=== PATIENT | male | born 1990 | race Caucasian/White ===

== ENCOUNTER 2016-12-06 17:24 | Inpatient (IN) | payer OTHER ==
[~2016-12-06] VITALS: Ht 182.9 cm; Wt 77.6 kg
[2016-12-06] MEDS ORDERED: DIAZEPAM 5 MG TABLET PO PRN (22:00)
[2016-12-06] MEDS ORDERED: MAGNESIUM HYDROXIDE 30 ML LIQUID UDC PO PRN (22:00)
[2016-12-06] MEDS ORDERED: ONDANSETRON ODT 4 MG TAB.RAPDIS SL PRN (22:00)
[2016-12-06] MEDS ORDERED: BUPRENORPHINE HCL 2 MG TAB.SUBL SL PRN (22:00)
[2016-12-06] MEDS ORDERED: LOPERAMIDE HCL 2 MG CAPSULE PO PRN ×2 (22:00)
[2016-12-06] MEDS ORDERED: MAG HYDROX/AL HYDROX/SIMETH 30 ML LIQUID UDC PO PRN (22:00)
[2016-12-06] MEDS ORDERED: LORAZEPAM 2 MG/1 ML VIAL IM PRN (22:00)
[2016-12-06] MEDS ORDERED: CLONIDINE HCL 0.1 MG TABLET PO PRN (22:00)
[2016-12-06] MEDS ORDERED: DIAZEPAM 10 MG TABLET PO PRN ×2 (22:00)
[2016-12-06] MEDS ORDERED: MIRALAX 17 GM POWD.PACK PO PRN (22:00)
[2016-12-06] MEDS ORDERED: diphenhydrAMINE 50 MG CAPSULE PO PRN (22:00)
[2016-12-06] MEDS ORDERED: DICYCLOMINE HCL 20 MG TABLET PO PRN (22:00)
[2016-12-06] MEDS ORDERED: ONDANSETRON 4 MG/2 ML VIAL IM PRN (22:00)
[2016-12-06] MEDS ORDERED: IBUPROFEN 600 MG TABLET PO PRN (22:00)
[2016-12-06] MEDS ORDERED: ACETAMINOPHEN 325 MG TABLET PO PRN (22:00)
[2016-12-06] MEDS ORDERED: THIAMINE HCL 200 MG/2 ML VIAL IM ONE (22:00)
[2016-12-06] MEDS ORDERED: HYDROXYZINE PAMOATE 25 MG CAPSULE PO PRN (22:00)
[2016-12-06] MEDS ORDERED: METHOCARBAMOL 750 MG TABLET PO PRN (22:00)
--- NOTE | 2016-12-06 23:00 | NUR ---
Admission note Pt is a 26 yo male, A+Ox4, presenting to [facility] for Opiate/ETOH dependence. Pt has Allergies to Apple, [place], Pear, and [place], is on Full Code status, and on Regular diet. Pt is 6'0" in height and 171 LBS in weight. Pt has medical HX of Genital Herpes, Insomnia, and Anxiety. Pt has no family HX to report. Pt has no Primary Care Provider. Pt has been drinking Alcohol for 11 years, has reached a level of 750ml Vodka/daily, and last drink was 750ml Vodka on 12-06-16 @0300. Pt has been using Heroin IV for 5 years, has reached a level of 1gm-3gm/daily, and last dose was 3gm on 12-06-16 @2199. Pt states that he is taking home medications as follows: Seroquel 100mg QHS Last taken 12-05-16 @2099, Valacyclovir 500mg BID Last taken 12-06-16 @2199, and Gabapentin 900mg TID Last taken 12-05-16. Pt has HX of previous Detox/Rehab @ [facility] in [facility] for 30 days from Sep 2016- October 2016. This was the PT's last time sober. Pt has been a cigarette smoker for 11 years and has reached a level of 20/daily. Pt is stable at this time with V/S WNL. Pt appears moderately intoxicated upon admission. No s/s of distress noted at this time. Respirations even and unlabored. Will continue to monitor.
[2016-12-06] MEDS ORDERED: VALA500T34 PO (23:50)
[2016-12-06] MEDS ORDERED: QUET25TA PO (23:50)
[2016-12-06] MEDS ORDERED: ROHTO EYE EACHEYE (23:50)
[2016-12-07 00:02] VITALS: BP 131/84
[2016-12-07] MEDS ORDERED: GABA300C PO (00:06)
[2016-12-07 01:17] LABS: BASOPHILS # (AUTO) 0.1 K/uL (0.0-8.0); BASOPHILS % (AUTO) 0.8 % (0.0-2.0); EOSINOPHILS # (AUTO) 0.3 K/uL (0.0-0.7); EOSINOPHILS % (AUTO) 2.9 % (0.0-7.0); HEMATOCRIT 44.9 % (36.7-47.1); HEMOGLOBIN 15.8 g/dL (12.5-16.3); LYMPHOCYTES # (AUTO) 2.1 K/uL (20.0-40.0); LYMPHOCYTES % (AUTO) 22.4 % (20.5-51.5); MEAN CORPUSCULAR HEMOGLOBIN 30.8 uug (23.8-33.4); MEAN CORPUSCULAR HGB CONC 35 g/dL (32.5-36.3); MEAN CORPUSCULAR VOLUME 87.3 fL (73.0-96.2); MONOCYTES # (AUTO) 0.7 K/uL (2.0-10.0); MONOCYTES % (AUTO) 6.9 % (0.0-11.0); NEUTROPHILS # (AUTO) 6.4 K/uL (1.8-8.9); PLATELET COUNT (AUTO) 284 K/uL (152-348); RED BLOOD CELL COUNT(AUTO) 5.14 MIL/uL (4.06-5.63); RED CELL DISTRIBUTION WIDTH 12.6 % (12.1-16.2); WHITE BLOOD COUNT (AUTO) 9.6 K/uL (3.6-10.2)
[2016-12-07 01:27] LABS: ETHANOL < 3 MG/DL (0-0)
[2016-12-07 01:32] LABS: ALANINE AMINOTRANSFERASE 39 U/L (16-63); ALBUMIN 4.3 g/dL (3.4-5.0); ALKALINE PHOSPHATASE 67 U/L (50-136); AMYLASE 28 U/L (25-115); ASPARTATE AMINOTRANSFERASE 22 U/L (15-37); BILIRUBIN,TOTAL 0.6 mg/dL (0.2-1.0); CALCIUM 9.2 mg/dL (8.5-10.1); GFR 92 mL/min (>60); GLUCOSE 117 mg/dL (74-106); LIPASE 58 U/L (73-393); TOTAL PROTEIN, SERUM 7.9 g/dL (6.4-8.2); UREA NITROGEN, BLOOD 11 mg/dL (7-18)
[2016-12-07 01:43] LABS: THYROID STIMULATING HORMONE 2.013 mIU/mL (0.358-3.740)
[2016-12-07 01:52] LABS: CARBON DIOXIDE 33 mmol/L (21-32)
[2016-12-07 01:55] LABS: CHLORIDE 99 mmol/L (98-107); SODIUM SERUM 138 mmol/L (136-145)
[2016-12-07 01:59] LABS: HIV-1 p24 ANTIGEN NON REACTIVE (NONREACTIVE); HIV-1/2 ANTIBODY NON REACTIVE (NONREACTIVE)
[2016-12-07 04:19] VITALS: BP 131/68
[2016-12-07 06:15] LABS: *AMPHETAMINE, URINE NEGATIVE (NEGATIVE); *BARBITURATE, URINE POSITIVE (NEGATIVE)
[2016-12-07 06:16] LABS: *CANNABINOID, URINE POSITIVE (NEGATIVE); *COCCAINE, URINE NEGATIVE (NEGATIVE); *OPIATE, URINE POSITIVE (NEGATIVE); *PHENCYCLIDINE SCREEN,URINE NEGATIVE (NEGATIVE)
--- NOTE | 2016-12-07 07:31 | NUR ---
End of shift note Pt is a 26 yo male, A+Ox4, presenting to [facility] for Opiate/ETOH dependence. Pt has Allergies to Apple, [place], Pear, and [place], is on Full Code status, and on Regular diet. Pt is 6'0" in height and 171 LBS in weight. Pt has medical HX of Genital Herpes, Insomnia, and Anxiety. Pt has no family HX to report. Pt has no Primary Care Provider. Pt has been drinking Alcohol for 11 years, has reached a level of 750ml Vodka/daily, and last drink was 750ml Vodka on 12-06-16 @0300. Pt has been using Heroin IV for 5 years, has reached a level of 1gm-3gm/daily, and last dose was 3gm on 12-06-16 @2199. Pt states that he is taking home medications as follows: Seroquel 100mg QHS Last taken 12-05-16 @2099, Valacyclovir 500mg BID Last taken 12-06-16 @2199, and Gabapentin 900mg TID Last taken 12-05-16 @2099. Pt has HX of previous Detox/Rehab @ [facility] in [facility] for 30 days from Sep 2016- October 2016. This was the PT's last time sober. Pt has been a cigarette smoker for 11 years and has reached a level of 20/daily. Pt slept for a total of 2 HRS. Last COWS: 1 and Last CIWA: 2 @0400. No s/s of distress noted at this time. Respirations even and unlabored. Will endorse to day shift nurse.
--- NOTE | 2016-12-07 07:32 | NUR ---
Start Of Shift Report received from table games shift manager nurse. Pt is a 26 year old male admitted on 12/06/16 for Opiate/ETOH dependence. Pt is full code regular diet on fall and seizure precautions. Pt has Allergies to Apple, [place], Pear, and [place]. Past medical HX of Genital Herpes, Insomnia, and Anxiety. Pt is placed on a 5 day Valium and 5 day Subutex tapers, to start today. Pts last COWS was a 1 and his last CIWA was a 3 which was taken at 0400. Pt did not receive any PRN medications last night and slept a total of 2 hours. Upon morning assessment Pt presented with flushed face, dilated pupils, mild aches, nasal stuffiness, some cramps and anxiety, will begin taper to control symptoms. All safety measures in place, call light within reach will continue to monitor and provide care.
[2016-12-07 08:00] VITALS: BP 125/69
[2016-12-07] MEDS: VALACYCLOVIR HCL 500 MG TABLET PO SCH ×2 (09:00→21:58)
[2016-12-07] MEDS ORDERED: TUBERCULIN,PURIF.PROT.DERIV. 5 TU/0.1 ML TEST ID ONE (09:00)
[2016-12-07] MEDS: FOLIC ACID 1 MG TABLET PO SCH (09:19)
[2016-12-07] MEDS: MULTIVITAMINS,THERAPEUTIC TABLET PO SCH (09:19)
[2016-12-07] MEDS: GABAPENTIN 300 MG CAPSULE PO SCH ×3 (09:19→21:58)
[2016-12-07] MEDS: THIAMINE HCL 100 MG TABLET PO SCH (09:19)
[2016-12-07] MEDS: BUPRENORPHINE HCL 2 MG TAB.SUBL SL SCH ×3 (09:19→21:00)
[2016-12-07] MEDS: DIAZEPAM 10 MG TABLET PO SCH ×3 (09:20→21:58)
[2016-12-07 12:00] VITALS: BP 124/72
[2016-12-07 16:00] VITALS: BP 114/69
--- NOTE | 2016-12-07 19:18 | NUR ---
End Of Shift Pt is a 26 year old male admitted for Opiate and Benzo dependency. Full code regular diet continues to be on fall and seizure precautions, Reports allergies to apple, peach, [place], pear. Patient alert and oriented x4, vital signs were stable during shift. Patient compliant with therapeutic plan of care. Patient continues on 5 day Subutex and 5 day Valium taper as ordered, well tolerated, no ASE noted. Patient encouraged adequate PO fluid intake as tolerated. Upon assessment patient presented with c/o chills, dilated pupils, stomach cramps, mild anxiety, mild agitation and barely sweating with his last COWS score of: 5 and CIWA score of: 5 @1600. Detox medication effective at reducing withdrawal symptoms. Patient encouraged to attend group therapies/sessions to learn new coping skills to recent relapse, noted attending and participating, patient denies SI/HI. Pt ate all of his meals his total fluid intake was 1855ml with 2 void and 0 bowel movement ,no PRN medications were administered during shift. Safety measures in place. Call light kept within reach. Patient endorsed to production shift supervisor nurse, all pertinent information discussed.
--- NOTE | 2016-12-07 19:19 | NUR ---
Start of shift note Received report from day shift nurse. Pt is a 26 yo male, A+Ox4, presenting to [facility] for Opiate/ETOH dependence. Pt has Allergies to Apple, peach, pear, and plum, is on Full Code status, and on Regular diet. Pt has HX of Anxiety, Insomnia, and Genital Herpes. Pt is on Fall and Seizure precautions. Pt is on 5 day Valium and Subutex tapers, tolerated well. No s/s of distress noted at this time. Respirations even and unlabored. Will continue to monitor.
[2016-12-07 20:22] VITALS: BP 115/60
[2016-12-08 00:17] VITALS: BP 118/66
[2016-12-08 04:25] VITALS: BP 112/55
--- NOTE | 2016-12-08 07:09 | NUR ---
End of shift note Pt is a 26 yo male, A+Ox4, presenting to [facility] for Opiate/ETOH dependence. Pt has Allergies to Apple, peach, pear, and plum, is on Full Code status, and on Regular diet. Pt has HX of Anxiety, Insomnia, and Genital Herpes. Pt is on Fall and Seizure precautions. Pt is on 5 day Valium and Subutex tapers, tolerated well. Pt slept for a total of 7 HRS. Last COWS: 1 and Last CIWA: 2 @0400. No s/s of distress noted at this time. Respirations even and unlabored. Will endorse to day shift nurse.
--- NOTE | 2016-12-08 07:35 | NUR ---
START OF SHIFT Received report from shift production supervisor nurse. 26 year old male, admitted on 12/06/16 for ETOH and heroin Dependence. Pt has been placed on a 5 day Valium and 5 day Subutex taper. Pt is full code regular diet on fall and seizure precautions. Allergies to apples, peaches, pears and pklums. Reports medical hx of anxiety, insomnia, and genital herpes. Pt remains compliant throughout night. Most recent CIWA at 0400 is 2, and COWS 1. Pt slept for 7 hours. No PRN medications needed or administered at night. Pt refused ordered dose of Subutex. V/S remain WNL. Skin is intact. Pt is currently sleeping in bed. All safety measures in place per hospital policy. Bed in lowest position, side rails up x2, call-light within reach. Will continue to monitor.
[2016-12-08 08:26] VITALS: BP 111/61
[2016-12-08] MEDS ORDERED: BUPRENORPHINE HCL 2 MG TAB.SUBL SL SCH ×2 (09:00→15:00)
[2016-12-08] MEDS ORDERED: DIAZEPAM 5 MG TABLET PO SCH (09:00)
--- NOTE | 2016-12-08 09:00 | NUR ---
REFUSAL OF SUBUTEX Pt is receiving ordered dose of Subutex 4mg stating he does not have any s/s of withdrawal at this time. COWS is 1, will notify
[2016-12-08] MEDS: THIAMINE HCL 100 MG TABLET PO SCH (09:14)
[2016-12-08] MEDS: MULTIVITAMINS,THERAPEUTIC TABLET PO SCH (09:14)
[2016-12-08] MEDS: GABAPENTIN 300 MG CAPSULE PO SCH ×3 (09:14→21:41)
[2016-12-08] MEDS: FOLIC ACID 1 MG TABLET PO SCH (09:15)
[2016-12-08] MEDS: VALACYCLOVIR HCL 500 MG TABLET PO SCH ×2 (09:17→21:41)
[2016-12-08 13:09] VITALS: BP 129/62
[2016-12-08 14:12] LABS: HCV AB <0.1 s/co ratio (0.0-0.9); HEPATITIS B CORE AB, IgM Negative (Negative); HEPATITIS B SURFACE AG Negative (Negative)
[2016-12-08 15:49] LABS: *AMPHETAMINE, URINE NEGATIVE (NEGATIVE); *BARBITURATE, URINE POSITIVE (NEGATIVE); *CANNABINOID, URINE POSITIVE (NEGATIVE); *COCCAINE, URINE NEGATIVE (NEGATIVE); *OPIATE, URINE POSITIVE (NEGATIVE); *PHENCYCLIDINE SCREEN,URINE NEGATIVE (NEGATIVE)
[2016-12-08 17:51] VITALS: BP 120/70
--- NOTE | 2016-12-08 19:09 | NUR ---
END OF SHIFT Endorsed to night cleaner nurse. 26 year old male patient admitted on 12/06/16 for ETOH and Heroin dependence. Pt is A/O x4. Taper has been discontinues and pt is cleared for discharge tomorrow. COWS 1 and CIWA 2 at 1700. V/S remain WNL. No acute distress noted. Urine was collected for d/c uds. Pt socializes with peers. Adequate caloric and fluid intake. Pt verbalizes feelings and is compliant and cooperative with treatment. No acute distress noted.
--- NOTE | 2016-12-08 19:09 | NUR ---
START OF SHIFT Patient endorsed by day shift nurse in stable condition. SBAR Report received. Patient is a 26 years old male admitted to [facility] on 12/06/16 for Alcohol and Opioid withdrawal under medical supervision, finished ordered 5 day Valium Taper and 5 day Subutex Taper. Patient remains compliant with therapeutic plan, medications and diet regime. Patient reported allergies to "Apple, [place], [place], Pear". Patient placed on Full Code, Regular Diet, Fall an Seizures Precautions. No Seizures History. Past Medical History: Anxiety, Insomnia, Genital Herpes. Substance Use: 1. ETOH: "0l of Vodka daily last 6 weeks. Length time usin years. Last date of use on 12/06/16 at 03:00 of 750 ml of Vodka". 2. HEROIN IV: " 1gm-3gm during last 6 weeks. Length time usin years. Last date of use on 12/06/16 at 22:00 of 3 grams. Recent Hospitalization/Treatment History: Detox/Rehabilitation @ [facility] for 30 days in [facility] from September 2016 to October 2016. Patient is in the bed , in his room. COWS 6; CIWA 6: Patient reports increased anxiety, agitation, nervousness, sweating ,mild diffuse discomfort, tremors that can felt. Patient denies N/V, and diarrhea now, Patient denies stomach cramps. Upon assessment patient is alert and oriented x4. Speech is clear and soft. VS: T:98'6; BP: 119/68; HR: 79; RR:19; RA O2SAT: 99%. Pain level : "0/10. Face is symmetrical. PERRLA. Pupil's larger than normal size bilaterally. Ears WNL. Mouth's WNL. Lips are pink. Breathing is even and unlabored. Lungs are clear bilaterally. BS's active in all x4 quadrants, abdomen is soft. Skin is intact, warm and moist by touch. Patient will discharging tomorrow. UDS test results placed on the chart. Safety measures by hospital policy: Call light within reach; Bed in lowest position and locked; padded rails up x2. All needs met. Will continue to monitor closely.
[2016-12-08 20:00] VITALS: BP 119/68
[2016-12-09] VITALS: BP 111/57
[2016-12-09] MEDS ORDERED: DIPH50CA37 PO (00:52)
[2016-12-09] MEDS ORDERED: METH-33 PO (00:52)
[2016-12-09] MEDS ORDERED: Ibuprofen PO (00:52)
[2016-12-09] MEDS ORDERED: HYDR-3895 PO (00:52)
[2016-12-09] MEDS ORDERED: DICY20TA28 PO (00:52)
[2016-12-09] MEDS ORDERED: VALA500T PO (00:56)
[2016-12-09 04:00] VITALS: BP 96/56
--- NOTE | 2016-12-09 07:18 | NUR ---
END OF SHIFT NOTE Patient is a 26 years old male admitted to [facility] on 12/06/16 for Alcohol and Opioid withdrawal under medical supervision, finished ordered 5 day Valium Taper and 5 day Subutex Taper. Patient remains compliant with therapeutic plan, medications and diet regime. Patient reported allergies to "Apple, [place], [place], Pear". Patient placed on Full Code, Regular Diet, Fall an Seizures Precautions. No Seizures History. Past Medical History: Anxiety, Insomnia, Genital Herpes. Substance Use: 1. ETOH: "750 ml of Vodka daily last 6 weeks. Length time usin years. Last date of use on 12/06/16 at 03:00 of 750 ml of Vodka". 2. HEROIN IV: " 1gm-3gm during last 6 weeks. Length time usin years. Last date of use on 12/06/16 at 22:00 of 3 grams .Recent Hospitalization/Treatment History: Detox/Rehabilitation @ [facility] for 30 days in [facility] from September 2016 to October 2016. COWS decreased from 6 to 1; CIWA decreased from 6 to 1: Patient presented with anxiety, agitation, nervousness, sweating ,mild diffuse discomfort, tremors that can felt. Patient denies N/V, and diarrhea now, Patient denies stomach cramps. Upon assessment patient is alert and oriented x4. Speech is clear and soft. VSWNL. Pain level : "0/10". Skin is intact, warm and moist by touch. PRN Benadryl was effective. Patient will discharging today. UDS test results placed on the chart. Patient slept 8 hours; Intake1,153 ml; Voided x3. Safety measures by hospital policy: Call light within reach; Bed in lowest position and locked; padded rails up x2. All needs met. Patient endorsed to day shift nurse in stable condition. SBAR Report given.
--- NOTE | 2016-12-09 07:30 | NUR ---
start of shift note: received pt from regasification plant operator nurse, pt is in stable condition no s/s of pain or discomfort. pt is [facility] for ETOH/OPIATE withdrawal. pt tolerated taper well. pt is set to discharge today. will assist pt in discharging and will continue to meet pt's needs.
[2016-12-09] MEDS: MULTIVITAMINS,THERAPEUTIC TABLET PO SCH (08:21)
[2016-12-09] MEDS: FOLIC ACID 1 MG TABLET PO SCH (08:21)
[2016-12-09] MEDS: THIAMINE HCL 100 MG TABLET PO SCH (08:21)
[2016-12-09] MEDS: GABAPENTIN 300 MG CAPSULE PO SCH (08:21)
[2016-12-09] MEDS: VALACYCLOVIR HCL 500 MG TABLET PO SCH (08:21)
[2016-12-09] MEDS ORDERED: BUPRENORPHINE HCL 2 MG TAB.SUBL SL SCH (09:00)
[2016-12-09] MEDS ORDERED: DIAZEPAM 5 MG TABLET PO SCH (09:00)
--- NOTE | 2016-12-09 10:29 | NUR ---
discharge note: pt left the unit in stable condition no s/s of pain or discomfort, or any withdrawal symptoms. pt teaching was administered and pt verbalized understanding. pt left with all personal belongings. pt's V/S WNL. pt will be transferred to morning side via private car
[2016-12-10] MEDS ORDERED: BUPRENORPHINE HCL 2 MG TAB.SUBL SL SCH (09:00)
[2016-12-10] MEDS ORDERED: DIAZEPAM 5 MG TABLET PO SCH (09:00)
[2016-12-18 13:07] LABS: *AMOBARBITAL Negative (Cutoff=200); *BUTALBITAL Negative (Cutoff=200); *CANNABINOID (THC) Positive (.); *CODEINE Positive (.); *HYDROMORPHONE Negative (Cutoff=300); *OPIATES Positive ng/mL (Cutoff=300); *PENTOBARBITAL Negative (Cutoff=200); *PHENOBARBITAL Positive (.); *SECOBARBITAL Negative (Cutoff=200)
== END 2016-12-09 10:29 | disposition home or self-care (01) | DRG 895 ==
LOC: UNDOADMIN 19:51 → SRC 19:51
PROVIDERS: ADMIT Internal Medicine; ATTEND Internal Medicine
PROC: HZ2ZZZZ Detoxification Services for Substance Abuse Treatment (ICD-10-PCS; principal; 2016-12-06)
PROC: HZ51ZZZ Individual Psychotherapy for Substance Abuse Treatment, Behavioral (ICD-10-PCS; 2016-12-08)
DX: F10.239 Alcohol dependence with withdrawal, unspecified (principal); E87.3 Alkalosis; F11.23 Opioid dependence with withdrawal; Y90.9 Presence of alcohol in blood, level not specified; E86.0 Dehydration; Z59.1 Inadequate housing; G47.00 Insomnia, unspecified; F17.210 Nicotine dependence, cigarettes, uncomplicated; F14.10 Cocaine abuse, uncomplicated; B00.9 Herpesviral infection, unspecified; Z59.0 Homelessness; F12.90 Cannabis use, unspecified, uncomplicated; E86.1 Hypovolemia
CPT/HCPCS: 36415; 80307; 80345; 80349; 80361; 83690; 83735; 84443; 85025; 86580; 86592; 86705; 86803; 87340; 87806; G6040-TC; Q0163